=== PATIENT | male | born 1970 | race Caucasian/White ===

== ENCOUNTER 2021-01-31 06:55 | Emergency (ER) | payer MEDICAID ==
[~2021-01-31] VITALS: Ht 165.1 cm; Wt 83.0 kg
[2021-01-31 06:59] VITALS: BP 122/70
--- NOTE | 2021-01-31 06:59 | NUR ---
TO BED AMBULATORY
--- NOTE | 2021-01-31 07:10 | NUR ---
50 Y/O M BIB SELF FROM HOME, PT PRESENTS TO ED WITH ABSCESS ON BACK NEAR LEFT SHOULDER, ESTIMATED 12CM MASS. AREA IS REDDENED WITH NO DISCHARGE ACTIVE AT SITE. PT STATES HE HAD A SMALL BUMP A YEAR AGO, BUT ONLY RECENTLY GOT BIGGER AND MORE PAINFUL. 3/10 PAIN AT THIS TIME, NO MEDS AT HOME. PMH: HIGH CHOLESTEROL NKA
[2021-01-31] MEDS ORDERED: LIDOCAINE MPF 1% 5 ML ONE (07:25)
--- NOTE | 2021-01-31 07:33 | NUR ---
I&D SET UP AT BED SIDE. ERMD NOTIFIED
[2021-01-31] MEDS ORDERED: CEPH-588 PO (08:13)
[2021-01-31 08:22] VITALS: BP 122/70
[2021-01-31] MEDS ORDERED: LIDOCAINE MPF 1% 10 MG/ML VIAL INJ ONE (08:25)
== END 2021-01-31 08:23 | disposition home or self-care (01) ==
LOC: MED 06:55
DX: L02.212 Cutaneous abscess of back [any part, except buttock and flank] (principal); F17.290 Nicotine dependence, other tobacco product, uncomplicated; Z79.899 Other long term (current) drug therapy; Z90.49 Acquired absence of other specified parts of digestive tract; Z71.6 Tobacco abuse counseling
CPT/HCPCS: 10060; 99284; J2001; 99283